=== PATIENT | female | born 1965 | race Caucasian/White ===

== ENCOUNTER 2024-01-16 07:04 | Day surgery (SDC) | payer BC ==
[~2024-01-16 07:04] MED LIST: Sodium Chloride 0.9% 10 ML Syringe FLUSH PRN
[2024-01-16] MEDS ORDERED: Midazolam 1 MG/ML 2 ML SDV IV ONE (07:05)
[2024-01-16] MEDS ORDERED: fentaNYL 100 MCG/2 ML SDV IV ONE (07:05)
[2024-01-16] MEDS ORDERED: Propofol 200 MG/20 ML SDV IV ONE (07:05)
[2024-01-16] MEDS: Lactated Ringers 1,000 ML IV SCH (07:50)
[2024-01-16] MEDS: Simethicone Drops 40 MG/0.6 ML 30 ML Bottle ONE (08:28)
[2024-01-16 09:42] VITALS: BP 122/93; PULSE 70
== END 2024-01-16 09:50 | disposition home or self-care (01) ==
LOC: FB.SDS 07:04
PROVIDERS: ATTEND Surgery
DX: Z12.11 Encounter for screening for malignant neoplasm of colon (principal); E78.00 Pure hypercholesterolemia, unspecified; E66.9 Obesity, unspecified; Z86.0100 Personal history of colon polyps, unspecified
CPT/HCPCS: 00811; A9270-GY; J2250; J2704; J3010; J7120